=== PATIENT | female | born 1990 | race Caucasian/White ===

== ENCOUNTER 2019-04-05 17:24 | Emergency (ER) | payer SELFPAY ==
[~2019-04-05] VITALS: Ht 154.9 cm; Wt 52.4 kg
[2019-04-05 17:27] VITALS: Ht 154.9 cm; Wt 52.4 kg
--- NOTE | 2019-04-05 18:41 | ERD ---
ER Documentation Chief Complaint Chief Complaint vag bleeding w/ pelvic pain, 7 weeks HPI Patient is a 28-year-old female, no past medical history, G1, P0, approximately 7 weeks , presents to the ER for concerns of vaginal spotting which started earlier today. Patient denies any pad usage. Patient denies any heavy bleeding or blood clot passage. Patient denies any fevers or chills, abdominal pain, cramping, dysuria, frequency, urgency. Patient was referred to the ER by Dr. Pablo Arango, patient's OBGYN, for ultrasound. Patient states her last menstrual l period was on 02-09-19. ROS All systems reviewed and are negative except as per history of present illness. Allergies Allergies: Coded Allergies: No Known Allergy (Unverified , 04/05/19) PMhx/Soc Medical and Surgical Hx: pt denies Medical Hx, pt denies Surgical Hx Hx Alcohol Use: No Hx Substance Use: No Hx Tobacco Use: No Smoking Status: Never smoker FmHx Family History: No diabetes Physical Exam Vitals Vital Signs Date Temp Pulse Resp B/P (MAP) Pulse Ox O2 O2 Flow FiO2 Time Delivery Rate 04/05/19 98.0 88 16 123/70 98 17:27 (87) Physical Exam GENERAL: Well-developed, well-nourished male. Appears in no acute distress. HEAD: Normocephalic, atraumatic. EYES: Pupils are equally reactive bilaterally. EOMs grossly intact. No conjunctival erythema. NECK: Supple. No meningismus. Normal range of motion of the neck. LUNG: Clear to auscultation bilaterally. No rhonchi, wheezing, rales or coarse breath sounds. HEART: Regular rate and rhythm. No murmurs, rubs or gallops. ABDOMEN: No scars, ecchymosis or rashes noted. Soft, nontender, and nondistended. Positive bowel sounds in all four quadrants. No rebound tenderness, no guarding. (-) McBurney's point tenderness. No CVA tenderness. BACK: No midline tenderness. EXTREMITIES: Equal pulses bilaterally. No peripheral clubbing, cyanosis or edema. No unilateral leg swelling. NEUROLOGIC: Alert and oriented. Moving all four extremities without any difficulty. Normal speech. Steady gait. SKIN: Normal color. Warm and dry. No rashes or lesions. Result Diagram: 04/05/19 1757 Results 24 hrs Laboratory Tests Test 04/05/19 17:57 White Blood Count 6.2 10^3/ul Red Blood Count 4.20 10^6/ul Hemoglobin 12.1 g/dl Hematocrit 35.0 % Mean Corpuscular Volume 83.3 fl Mean Corpuscular Hemoglobin 28.8 pg Mean Corpuscular Hemoglobin Concent 34.6 g/dl Red Cell Distribution Width 12.4 % Platelet Count 208 10^3/UL Mean Platelet Volume 10.0 fl Immature Granulocytes % 0.200 % Neutrophils % 61.0 % Lymphocytes % 31.3 % Monocytes % 6.7 % Eosinophils % 0.5 % Basophils % 0.3 % Nucleated Red Blood Cells % 0.0 /100WBC Immature Granulocytes # 0.010 10^3/ul Neutrophils # 3.8 10^3/ul Lymphocytes # 1.9 10^3/ul Monocytes # 0.4 10^3/ul Eosinophils # 0.0 10^3/ul Basophils # 0.0 10^3/ul Nucleated Red Blood Cells # 0.0 10^3/ul Urine Color YELLOW Urine Clarity CLEAR Urine pH 7.0 Urine Specific [place] 1.004 Urine Ketones 1+ mg/dL Urine Nitrite NEGATIVE mg/dL Urine Bilirubin NEGATIVE mg/dL Urine Urobilinogen NEGATIVE mg/dL Urine Leukocyte Esterase TRACE Joan/ul Urine Microscopic RBC 2 /HPF Urine Microscopic WBC 1 /HPF Urine Squamous Epithelial Cells FEW /HPF Urine Bacteria FEW /HPF Urine Hemoglobin NEGATIVE mg/dL Urine Glucose NEGATIVE mg/dL Urine Total Protein NEGATIVE mg/dl Beta HCG, Quantitative 69391.0 mIU/ml Procedures/MDM ED COURSE: The patient was stable throughout ED course. I kept the patient and/or family informed of laboratory and diagnostic imaging results throughout the ED course. DIAGNOSTIC IMAGING: Read by radiologist. Patient: JOVANNA ORTIZ : 1990 Age: 28 Sex: F MR #: [id number] DOS: 04/05/19 1741 Ordering MD: MIS GERARDO PA-C Location: [facility] Room/Bed: PROCEDURE: US OB. CLINICAL INDICATION: Vaginal bleeding TECHNIQUE: Transabdominal views of the pelvis were obtained. COMPARISON: No prior studies are available for comparison. FINDINGS: There is a single intrauterine gestation with a CRL measuring 1.0 cm and the gestational sac measures 2 cm, corresponding to a gestational age of 7 weeks and 0 days. The heart rate is noted at 156 bpm. There is a hypoechoic fluid collection adjacent to the gestational sac, measuring 0.9 x 0.5 x 1.9 cm, consistent with subchorionic hemorrhage. The right ovary was not seen. The left ovary measures 3.8 x 2.0 x 2.8 cm. There is normal Doppler flow. No adnexal mass lesion is seen. There is no free fluid. RPTAT: AA IMPRESSION: Single live intrauterine with an estimated gestational age of 7 weeks and 0 days, based on ultrasound measurements. Focal area of subchorionic hemorrhage. Close follow-up is recommended. .Billy Reid MD, MD Date Time Electronically viewed and signed by .Billy Reid MD, MD on 04/05/2019 19:26 .S/ CC: MIS GERARDO PA-C [phone] MEDICAL DECISION MAKING: This is a 28-year-old female, G1, P0, presents the ER for concerns of vaginal spotting which started prior to arrival. Vital signs were reviewed. Patient was afebrile. Patient was hemodynamically stable. [place] [address]. Patient was O+, no indication for RhoGam. CBC showed no evidence of systemic infection or anemia. UA did show trace leukocyte esterase however patient denied any dysuria, urgency, urgency or hematuria. Will defer treatment at this time as likely sample is a dirty catch. Pelvic ultrasound showed single live intrauterine gestation of 7 weeks and 0 days. Focal area of subchorionic hemorrhage. Repeat beta-hCG and ultrasound advised in 2 days. At this time the patient presentation is most consistent with threatened versus subchorionic hemorrhage.. Differential diagnosis included but was not limited to ectopic , ruptured ectopic , molar , spontaneous , incomplete , complete , missed , placental abruption, placental previa, vasa previa, uterine rupture, anembyronic . DISCHARGE: At this time, patient is stable for discharge and outpatient management. I had a conversation at length with the patient about the concerns of vaginal bleeding during the 1st trimester of . Patient and/or family understands that her vaginal bleeding can be a normal finding or a sign of miscarriage. I have instructed the patient to follow-up with her OBGYN in 1-2 days for further monitoring including a repeat b-HCG level. I have instructed the patient to promptly return to the ER at any time for any new or worsening symptoms including increased pain, nausea, vomiting, continued bleeding, weakness, syncope or fever. The patient and/or family expressed understanding of and agreement with this plan. All questions were answered. Home care instructions were provided. Disclaimer: Inadvertent spelling and grammatical errors are likely due to EHR/dictation software use and do not reflect on the overall quality of patient care. Also, please note that the electronic time recorded on this note does not necessarily reflect the actual time of the patient encounter. Departure Diagnosis: Primary Impression: Vaginal bleeding in patient at less than 20 weeks ges... Additional Impression: Subchorionic hematoma in first trimester Fetus number: single or unspecified fetus Qualified Codes: O41.8X10 - Other specified disorders of amniotic fluid and membranes, first trimester, not applicable or unspecified; O46.8X1 - Other antepartum hemorrhage, first trimester Condition: Fair Patient Instructions: Bleeding During Early Referrals: [facility], [facility] YOU HAVE RECEIVED A MEDICAL SCREENING EXAM AND THE RESULTS INDICATE THAT YOU DO NOT HAVE A CONDITION THAT REQUIRES URGENT TREATMENT IN THE EMERGENCY DEPARTMENT. FURTHER EVALUATION AND TREATMENT OF YOUR CONDITION CAN WAIT UNTIL YOU ARE SEEN IN YOUR DOCTORS OFFICE WITHIN THE NEXT 1-2 DAYS. IT IS YOUR RESPONSIBILITY TO MAKE AN APPOINTMENT FOR FOLOW-UP CARE. IF YOU HAVE A PRIMARY DOCTOR --you should call your primary doctor and schedule an appointment IF YOU DO NOT HAVE A PRIMARY DOCTOR YOU CAN CALL OUR PHYSICIAN REFERRAL HOTLINE AT IF YOU CAN NOT AFFORD TO SEE A PHYSICIAN YOU CAN CHOSE FROM THE FOLLOWING [facility] [address] [facility] [address] [facility]. [facility] [address] [facility] [address] [facility] [facility] [address] [facility] [address] [facility]. [facility] YOU HAVE RECEIVED A MEDICAL SCREENING EXAM AND THE RESULTS INDICATE THAT YOU DO NOT HAVE A CONDITION THAT REQUIRES URGENT TREATMENT IN THE EMERGENCY DEPARTMENT. FURTHER EVALUATION AND TREATMENT OF YOUR CONDITION CAN WAIT UNTIL YOU ARE SEEN IN YOUR DOCTORS OFFICE WITHIN THE NEXT 1-2 DAYS. IT IS YOUR RESPONSIBILITY TO MAKE AN APPOINTMENT FOR FOLOW-UP CARE. IF YOU HAVE A PRIMARY DOCTOR --you should call your primary doctor and schedule and appointment IF YOU DO NOT HAVE A PRIMARY DOCTOR YOU CAN CALL OUR PHYSICIAN REFERRAL HOTLINE AT . IF YOU CAN NOT AFFORD TO SEE A PHYSICIAN YOU CAN CHOSE FROM THE FOLLOWING [facility] INSTITUTIONS: [facility] [address] [place] [address] [facility] [address] [place] [address] [facility] [address] [place] [address] Additional Instructions: Llame al doctor/ OBGYN Pablo DOAN y kylee david FELICIANO PARA DENTRO DE 1-2 CHAKRABORTY.Dgale a la secretaria que nosotros le instruimos hacer esta feliciano.Avise o llame si romero condicin se empeora antes de la feliciano. Regresa aqui si peor o no mejor. MIS GERARDO PA-C Apr 05, 2019 18:41
[2019-04-05 19:37] VITALS: BP 111/64; PULSE 81; RESP 16
== END 2019-04-05 19:39 | disposition home or self-care (01) ==
LOC: FTE 17:24
DX: O41.8X10 Other specified disorders of amniotic fluid and membranes, first trimester, not applicable or unspecified (principal); O46.8X1 Other antepartum hemorrhage, first trimester; R10.2 Pelvic and perineal pain; Z3A.01 Less than 8 weeks gestation of pregnancy
CPT/HCPCS: 76801; 81001; 84702; 85025; 86900; 86901